=== PATIENT | female | born 1990 | race Two or more races ===

== ENCOUNTER → 2023-09-21 | Outpatient (CLI) | payer MEDICAID ==
[2023-09-21 08:35] LABS: Basophils # (auto) 0 10 ^3/uL (0-0.2); Basophils % (auto) 0.3 % (0.0-2.0); Eosinophils # (auto) 0.1 10 ^3/uL (0-0.8); Eosinophils % (auto) 0.7 % (0.0-7.0); Hematocrit 34.7 % (36.0-46.0); Hemoglobin 11.4 g/dL (12.2-16.2); Lymphocytes # (auto) 2.5 10 ^3/uL (0.4-5.4); Lymphocytes % (auto) 27.9 % (10.0-50.0); Mean Corpuscular Hemoglobin 26.3 pg (28.0-32.0); Mean Corpuscular Volume 79.6 fL (80.0-100.0); Monocytes # (auto) 0.4 10 ^3/uL (0-1.3); Monocytes % (auto) 4.8 % (0.0-12.0); Neutrophils % (auto) 66.3 % (37.0-80.0); Red Blood Cells 4.36 10^6/uL (4.0-5.20); Red Cell Distribution Width 14.3 % (11.8-14.3)
[2023-09-21 08:58] LABS: Alanine Aminotransferase 20 U/L (7-40); Alkaline Phosphatase 82 U/L (46-116); Anion Gap 2 (5-15); Aspartate Aminotransferase 12 U/L (13-40); BUN/Creatinine Ratio 9.1 (10.0-20.0); Bilirubin, Total 0.3 mg/dL (0.2-1.0); Blood Urea Nitrogen 5 mg/dL (9-23); Calcium 9.2 mg/dL (8.5-10.1); Carbon Dioxide 27 mmol/L (20-30); Chloride 108 mmol/L (98-107); Glucose 89 mg/dL (74-106); Sodium 137 mmol/L (136-145); Total Protein 6.4 g/dL (5.7-8.2)
[2023-09-22 07:06] LABS: RPR Non Reactive (Non Reactive)
[2023-09-22 23:07] LABS: Chlamydia Trachomatis, NAA Negative (Negative); Neisseria gonorrhoeae, NAA Negative (Negative)
== END | disposition home or self-care (01) ==
LOC: LAB 08:13
PROVIDERS: ATTEND Obstetrics & Gynecology
DX: Z34.80 Encounter for supervision of other normal pregnancy, unspecified trimester (principal); Z3A.00 Weeks of gestation of pregnancy not specified
CPT/HCPCS: 36415; 80053; 82951; 83036; 85025; 86592; 86850; 86900; 86901

== ENCOUNTER 2023-12-13 10:35 | Inpatient (IN) | payer SELFPAY ==
[~2023-12-13] VITALS: Ht 154.9 cm; Wt 87.1 kg
[2023-12-13] MEDS: ceFAZolin 1GM/50ML 50 ML IV SCH (04:05)
[2023-12-13] MEDS ORDERED: BUTORPHANOL TARTRATE 2 MG/1 ML VIAL IV PRN ×2 (12:00)
[2023-12-13] MEDS ORDERED: LIDOCAINE 2%HCL (LOCAL ANESTH.) INJ 20ML MDV IJ PRN (12:00)
[2023-12-13 13:10] LABS: Urine Bacteria None Seen /hpf (None Seen)
[2023-12-13 13:24] LABS: Basophils # (auto) 0 10 ^3/uL (0-0.2); Basophils % (auto) 0.3 % (0.0-2.0); Eosinophils # (auto) 0 10 ^3/uL (0-0.8); Hemoglobin 10.8 g/dL (12.2-16.2); Monocytes # (auto) 0.5 10 ^3/uL (0-1.3)
[2023-12-13 13:26] LABS: Eosinophils % (auto) 0.2 % (0.0-7.0); Hematocrit 32.7 % (36.0-46.0); Lymphocytes # (auto) 1.9 10 ^3/uL (0.4-5.4); Lymphocytes % (auto) 22.3 % (10.0-50.0); Mean Corpuscular Hemoglobin 25.4 pg (28.0-32.0); Mean Corpuscular Volume 77.1 fL (80.0-100.0); Monocytes % (auto) 5.4 % (0.0-12.0); Neutrophils # (auto) 6.1 10 ^3/uL (1.6-8.6); Neutrophils % (auto) 71.8 % (37.0-80.0); Platelet Count (auto) 258 10^3/uL (140-450); Red Blood Cells 4.24 10^6/uL (4.0-5.20); Red Cell Distribution Width 14.7 % (11.8-14.3); White Blood Cell 8.4 10^3/uL (4.4-10.8)
[2023-12-13 13:28] LABS: Urine WBC 1 /hpf (0 - 5)
[2023-12-13 13:45] LABS: Amphetamine Screen, Urine Neg (NEGATIVE); Barbiturate Scree,Urine Neg (NEGATIVE); Benzodiazephine Screen, Urine Neg (NEGATIVE); Cannabinoid Screen, Urine Neg (NEGATIVE); Cocaine Screen, Urine Neg (NEGATIVE); Opiate Scree,Urine Neg (NEGATIVE); Phencyclidine Screen, Urine Neg (NEGATIVE)
[2023-12-13 13:45] LABS: Alanine Aminotransferase 25 U/L (7-40); Albumin 3.7 g/dL (3.2-4.8); Alkaline Phosphatase 204 U/L (46-116); Anion Gap 10 (5-15); Aspartate Aminotransferase 14 U/L (13-40); Bilirubin, Total 0.3 mg/dL (0.2-1.0); Blood Urea Nitrogen 12 mg/dL (9-23); Carbon Dioxide 19 mmol/L (20-30); Chloride 108 mmol/L (98-107); Glucose 91 mg/dL (74-106); Potassium 4.1 mmol/L (3.5-5.1); Sodium 137 mmol/L (136-145)
[2023-12-13 13:47] LABS: Urine Blood Normal /uL (Negative); Urine Clarity CLEAR (Clear); Urine Color Light Yellow (Yellow); Urine Protein, UAD Normal (Negative); Urine Specific Gravity 1.023 (1.001-1.035); Urine Urobilinogen Normal (Negative); Urine pH 5.5 (5.0-9.0)
[2023-12-13 14:08] LABS: INR 0.9 (0.9-1.15); Partial Thromboplastin Time 23.4 SEC (24.5-34.5); Prothrombin Time 9.8 sec (9.3-11.8)
[2023-12-13] MEDS: DERMOPLAST 60ML BOTTLE TOP PRN (14:15)
[2023-12-13] MEDS: PHISODERM TOP SOLN 240ML BTL TOP PRN (14:15)
[2023-12-13] MEDS: WITCH HAZEL-GLYCERIN PAD TOP PRN (14:15)
[2023-12-13] MEDS: PENICILLIN G POT 5MIL/D5 50ML 50 ML IV ONE (14:16)
[2023-12-13] MEDS: ePHEDrine SULFATE 50 MG/ML AMP IV ONE (14:45)
[2023-12-13] MEDS: NALOXONE HCL 0.4 MG/ML VIAL IV ONE (14:45)
[2023-12-13] MEDS ORDERED: PENICILLIN G POTASSIUM 2,500,000 UNITS in D5W 5% 50 ML IV SCH (16:00)
[2023-12-13] MEDS: LACTATED RINGER'S 1,000 ML IV SCH (17:09)
[2023-12-13] MEDS: ROPIVACAINE HCL 200 ML ONE (17:11)
[2023-12-13] MEDS: PENICILLIN G POTASSIUM 2,500,000 UNITS in D5W 5% 50 ML IV SCH (18:33)
[2023-12-13] MEDS ORDERED: SODIUM CHLORIDE 0.9% 300 ML IUPC ONE (19:15)
[2023-12-13] MEDS ORDERED: SODIUM CHLORIDE 0.9% 1,000 ML IUPC SCH (19:15)
[2023-12-13] MEDS ORDERED: MORPHINE SULF PF 5 MG/10 ML VIAL ONE (19:34)
[2023-12-13] MEDS ORDERED: oxyTOCIN 10 UNIT/ML 10ML VIAL ONE (19:34)
[2023-12-13] MEDS ORDERED: ONDANSETRON HCL 4 MG/2 ML VIAL ONE (19:34)
[2023-12-13] MEDS ORDERED: fentaNYL CITRATE 100 MCG/2 ML VL ONE (19:34)
[2023-12-13] MEDS ORDERED: DexAMETHasone SOD PHOS 10MG/1ML VIAL INJ ONE (19:34)
[2023-12-13] MEDS ORDERED: ceFAZolin 2 GM/D5W50ml 50 ML IV ONE (19:45)
[2023-12-13] MEDS ORDERED: METOCLOPRAMIDE HCL 5MG/ml INJ 2ml VIAL IV ONE (19:45)
[2023-12-13] MEDS ORDERED: SODIUM CITR/CITRIC ACID ORAL SOLN 30 ML PO ONE (19:45)
[2023-12-13] MEDS ORDERED: IBUP-1456 PO (20:05)
[2023-12-13] MEDS ORDERED: HYDR-4072 PO (20:05)
[2023-12-13] MEDS ORDERED: DOCU-94 PO (20:05)
[2023-12-13] MEDS ORDERED: LACT. RINGERS/OXYTOCIN 20UNITS 1,000 ML IV ONE (20:15)
[2023-12-13] MEDS ORDERED: GUM (CHEWING) 1 GUM CHEW CHEW ONE (20:15)
[2023-12-13] MEDS ORDERED: ONDANSETRON HCL 4 MG/2 ML VIAL IV PRN (20:15)
[2023-12-13] MEDS: CARBOPROST TROMETHAMINE 250 MCG/1ML VIAL IM ONE (20:42)
[2023-12-13] MEDS ORDERED: SODIUM CHLORIDE LOCK 10 ML ONE (21:01)
[2023-12-13] MEDS ORDERED: PHENYLEPHRINE HCL 10 MG/ML VL ONE (21:01)
[2023-12-13 21:20] VITALS: PULSE 82; RESP 11; O2SAT 97
[2023-12-13 21:48] VITALS: BP 113/65; PULSE 75; RESP 16; TEMP 98.4; O2SAT 97
[2023-12-13 22:00] VITALS: BP 113/65; PULSE 75; RESP 18; O2SAT 97
[2023-12-13] MEDS: LACTATED RINGER'S 1,000 ML IV ONE (22:00)
[2023-12-13 23:06] LABS: Basophils # (auto) 0 10 ^3/uL (0-0.2); Eosinophils # (auto) 0 10 ^3/uL (0-0.8); Hemoglobin 10.6 g/dL (12.2-16.2)
[2023-12-13 23:08] LABS: Basophils % (auto) 0.1 % (0.0-2.0); Eosinophils % (auto) 0.1 % (0.0-7.0); Hematocrit 32.3 % (36.0-46.0); Lymphocytes # (auto) 1.2 10 ^3/uL (0.4-5.4); Lymphocytes % (auto) 8.1 % (10.0-50.0); Mean Corpuscular Hgb Conc. 32.9 g/dL (32.0-36.0); Mean Corpuscular Volume 79.1 fL (80.0-100.0); Monocytes # (auto) 0.2 10 ^3/uL (0-1.3); Monocytes % (auto) 1.5 % (0.0-12.0); Neutrophils # (auto) 13.4 10 ^3/uL (1.6-8.6); Neutrophils % (auto) 90.2 % (37.0-80.0); Platelet Count (auto) 242 10^3/uL (140-450); Red Blood Cells 4.08 10^6/uL (4.0-5.20); Red Cell Distribution Width 14.4 % (11.8-14.3); White Blood Cell 14.9 10^3/uL (4.4-10.8)
[2023-12-14] VITALS (17 sets, daily range): BP systolic 102–126; BP diastolic 60–76; PULSE 51–80; RESP 16–18; TEMP 97.6–98.6; O2SAT 95–100
[2023-12-14 09:06] LABS: RPR Non Reactive (Non Reactive)
[2023-12-14 11:07] LABS: Rubella Antibodies, IgG 5.67 index (Immune >0.99)
[2023-12-14 11:14] LABS: Basophils # (auto) 0 10 ^3/uL (0-0.2); Eosinophils # (auto) 0 10 ^3/uL (0-0.8); Hemoglobin 10.5 g/dL (12.2-16.2); Mean Corpuscular Hemoglobin 25.5 pg (28.0-32.0); Monocytes # (auto) 0.7 10 ^3/uL (0-1.3); Neutrophils # (auto) 12.2 10 ^3/uL (1.6-8.6); Red Blood Cells 4.12 10^6/uL (4.0-5.20)
[2023-12-14 11:15] LABS: Hematocrit 31.9 % (36.0-46.0); Lymphocytes # (auto) 1.7 10 ^3/uL (0.4-5.4); Lymphocytes % (auto) 11.6 % (10.0-50.0); Mean Corpuscular Hgb Conc. 32.9 g/dL (32.0-36.0); Mean Corpuscular Volume 77.4 fL (80.0-100.0); Monocytes % (auto) 4.7 % (0.0-12.0); Neutrophils % (auto) 83.7 % (37.0-80.0); Platelet Count (auto) 244 10^3/uL (140-450); Red Cell Distribution Width 14.2 % (11.8-14.3); White Blood Cell 14.6 10^3/uL (4.4-10.8)
[2023-12-14] MEDS: LACTATED RINGER'S 1,000 ML IV SCH (11:55)
[2023-12-14] MEDS: ACETAMINOPHEN IV 1000 MG/100ML (10MG/ML) IV PRN (12:46)
[2023-12-14] MEDS ORDERED: HYDROcodone-ACET 5/325MG TAB PO PRN (19:30)
[2023-12-14] MEDS: KETOROLAC TROMETH 30 MG/ML 1ML VIAL IV PRN (20:00)
[2023-12-14] MEDS: ceFAZolin 1GM/50ML 50 ML IV ONE (20:02)
[2023-12-14] MEDS ORDERED: IBUP-1456 PO (21:52)
[2023-12-14] MEDS ORDERED: FER325T PO (21:52)
[2023-12-14] MEDS: DOCUSATE SOD 100 MG CAP PO SCH (22:03)
[2023-12-14] MEDS: FERROUS SULFATE 325mg EC TAB PO SCH (22:03)
[2023-12-14] MEDS: SIMETHICONE 80 MG CHEWABLE TABLET PO SCH (22:03)
[2023-12-15 03:00] VITALS: BP 104/67; PULSE 70; RESP 16; TEMP 98.2; O2SAT 98
[2023-12-15 07:30] VITALS: BP 113/68; PULSE 76; RESP 16; TEMP 98.4; O2SAT 97
[2023-12-15] MEDS: IBUPROFEN 800 MG TAB PO PRN (07:43)
[2023-12-15] MEDS: DOCUSATE CALCIUM 240 MG CAP PO SCH (10:31)
[2023-12-15 11:00] VITALS: BP 112/72; PULSE 77; RESP 16; TEMP 98.2; O2SAT 97
[2023-12-15] MEDS: HYDROcodone-ACET 5/325MG TAB PO PRN (14:24)
[2023-12-15 15:29] VITALS: BP 104/62; PULSE 74; RESP 16; TEMP 98.8; O2SAT 96
[2023-12-15] MEDS: BISACODYL 10 MG RECT SUPP PR PRN (17:49)
[2023-12-15 18:30] VITALS: BP_SYST 113; BP_SYST 125; BP_DIAS 67; BP_DIAS 68; PULSE 89; RESP 16; TEMP 98.3; O2SAT 100; O2SAT 96
[2023-12-15 23:00] VITALS: BP 123/69; PULSE 75; RESP 16; TEMP 97.9; O2SAT 98
[2023-12-16 03:00] VITALS: BP 118/67; PULSE 71; RESP 16; TEMP 98.2; O2SAT 98
[2023-12-16 06:35] VITALS: BP 122/69; PULSE 71; RESP 18; TEMP 98.3; O2SAT 98
== END 2023-12-16 09:54 | disposition home or self-care (01) | DRG 785 ==
LOC: LDRP 10:35 → OBSVTOIN 11:15 → LDRP 12-14 09:12
PROVIDERS: ADMIT Obstetrics & Gynecology; ATTEND Obstetrics & Gynecology
PROC: 0UL70CZ Occlusion of Bilateral Fallopian Tubes with Extraluminal Device, Open Approach (ICD-10-PCS; 2023-12-13)
PROC: 10D00Z1 Extraction of Products of Conception, Low, Open Approach (ICD-10-PCS; principal; 2023-12-13 20:16)
DX: O76 Abnormality in fetal heart rate and rhythm complicating labor and delivery (principal); Z30.2 Encounter for sterilization; O32.3XX0 Maternal care for face, brow and chin presentation, not applicable or unspecified; Z3A.39 39 weeks gestation of pregnancy; Z37.0 Single live birth; O99.02 Anemia complicating childbirth; D50.9 Iron deficiency anemia, unspecified; O42.92 Full-term premature rupture of membranes, unspecified as to length of time between rupture and onset of labor
CPT/HCPCS: 36415; 59025; 76805; 80053; 80307; 81001; 85025; 85610; 85730; 86592; 86703; 86762; 86803; 86850; 86900; 86901; 87340; 94760; 94762; 96360; 96361; 96374; G0378; J0131; J1100; J1885; J2405; J2540; J2590; J7060